=== PATIENT | male | born 1950 | race Caucasian/White ===

== ENCOUNTER → 2024-03-07 14:39 | Outpatient (REF) | payer MEDICARE, OTHER, SELFPAY ==
[2024-03-07 15:49] LABS: Urine Albumin 1+ (Neg - Trace); Urine Bilirubin Negative (Negative); Urine Character Slightly Cloudy (Clear); Urine Color Yellow; Urine Glucose Negative (Negative); Urine Ketone 1+ (Negative); Urine Leukocyte Trace (Negative); Urine Nitrite Positive (Negative); Urine Occult Blood 4+ (Negative); Urine Urobilinogen 1+ (Neg - 1+)
[2024-03-07 16:25] LABS: Urine Red Blood Cell >100 /HPF (0-2)
== END ==
LOC: REG 14:39
PROVIDERS: ATTENDING PHYSICIAN Surgery
DX: N39.0 Urinary tract infection, site not specified (principal); N20.0 Calculus of kidney
CPT/HCPCS: 74018; 81003; 81015; 87086

== ENCOUNTER → 2024-04-04 10:30 | Outpatient (REF) | payer MEDICARE, OTHER, SELFPAY | LOC: RAD 10:30 | PROVIDERS: ATTENDING PHYSICIAN Surgery Vascular Surgery; FAMILY PHYSICIAN Family Medicine | DX: I65.23 Occlusion and stenosis of bilateral carotid arteries (principal) | CPT/HCPCS: 93880 ==

== ENCOUNTER → 2024-04-11 06:23 | Outpatient (REF) | payer MEDICARE, OTHER, SELFPAY | LOC: RAD 06:23 | PROVIDERS: ATTENDING PHYSICIAN Surgery; FAMILY PHYSICIAN Family Medicine | DX: R31.9 Hematuria, unspecified (principal) | CPT/HCPCS: 74176 ==

== ENCOUNTER 2025-01-08 05:57 | Inpatient (IN) | payer MEDICARE, OTHER, SELFPAY ==
[2024-12-26 10:23] VITALS: BMI 38.1
[2024-12-26 11:16] LABS: % Basophils 0.6 % (0-2); % Eosinophils 1.7 % (0-6); % Immature Granulocytes 0.2 % (0-0.5); % Lymphocytes 30.4 % (20.5-51.1); % Monocytes 8.7 % (1.7-9.3); % Neutrophils 58.4 % (42.2-75.2); Absolute Eosinophils 0.1 10^3/uL (0-0.7); Absolute Lymphocytes 1.5 10^3/uL (1.2-3.4); Absolute Monocytes 0.4 10^3/uL (0.1-0.6); Absolute Neutrophils 2.8 10^3/uL (1.4-6.5); Hematocrit 43.1 % (39.0-52.0); Hemoglobin 14.6 g/dL (13.0-18.0); Mean Corp Hgb Conc. 33.9 g/dL (33.0-37.0); Mean Corpuscular Hgb 29.9 pg (27.0-31.0); Mean Corpuscular Volume 88.3 fL (80.0-94.0); Mean Platelet Volume 9.6 fL (7.4-10.4); Nucleated Red Blood Cells % 0 % (-); Platelet Count 167 10^3/uL (130-400); Red Blood Cell Count 4.88 10^6/uL (4.70-6.10); Red Cell Dist. Width 13.3 % (11.5-14.5); White Blood Cell Count 4.8 10^3/uL (4.8-10.8)
[2024-12-26 11:27] LABS: INR 1.18; PT 15.6 Sec (11.4-14.6)
[2024-12-26 12:23] LABS: ALT (SGPT) 19 U/L (0-50); AST (SGOT) 21 U/L (17-59); Albumin 4.2 g/dl (3.5-5.0); Alkaline Phosphatase 72 U/L (38-126); Blood Urea Nitrogen 24 mg/dl (9-20); Calcium 9.4 mg/dl (8.4-10.2); Carbon Dioxide 26 mmol/L (22-30); Chloride 109 mmol/L (98-107); Estimated Creatinine Clearance 72 ml/min; Glucose 104 mg/dl (70-99); Magnesium 2.1 mg/dl (1.6-2.3); Potassium 4.4 mmol/L (3.5-5.1); Sodium 143 mmol/L (135-145); Total Protein 6.5 g/dl (6.3-8.2); eGFR > 60.00
[2025-01-08] VITALS (21 sets, daily range): BP systolic 93–149; BP diastolic 64–104
[2025-01-08] MEDS: NSS 500 IV (06:56)
[2025-01-08 08:43] LABS: ACT-LR - POC 326 Seconds (116-155)
[2025-01-08 09:32] LABS: ACT-LR - POC 314 Seconds (116-155)
[2025-01-08] MEDS: TYLENOL 650 MG PO ×3 (10:59→21:28)
[2025-01-08] MEDS: FLOMAX 0.4 MG PO (10:59)
[2025-01-08] MEDS: LASIX 20 MG IV (11:00)
[2025-01-08] MEDS: PROSCAR 5 MG PO (11:04)
--- NOTE | 2025-01-08 11:33 | PTCARENOTE ---
Pt voided preop x1 and post op x3 same bloody urine. ( TURP needed/reason for Watchman procedure today). He follows w/urology. Finasteride/ Flomax and Lasix given post up as ordered. Dr Roberto aware preop.
--- NOTE | 2025-01-08 12:03 | ITS.CL.ABL ---
Chisel Trimmer - Ablation
Ablation
Procedure Report:
ELECTROPHYSIOLOGIC STUDY AND POSSIBLE ABLATION
DATE: 05/10/2025
Primary Care Provider: Dr. Shahid Green
Primary Sponsorship Coordinator: Dr. Rosmery Bell
INDICATION:
Symptomatic Atrial Fibrillation.
Paroxysmal
HISTORY: See H and P.
Symptomatic AF, poorly controlled with attempted medical therapy.
He is referred for electrophysiologic consultation from Dr. Rosmery Bell.
CHADSVASc = 5 (HTN, Age, CVA, Vasc Dz). He is maintained on apixaban 5 mg twice daily for atrial fibrillation related thromboembolic risk reduction.
He has a history of TIA, ischemic stroke, hypertension, former smoker, ophthalmologic migraines, dyslipidemia.
He had right carotid endarterectomy with patch angioplasty using bovine pericardium by Dr. Torres on March 19, 2022.
Echocardiogram August 14, 2020 finds normal LVEF at 65-70% normal RV size and function,� no significant valvular disease, normal right atrial and left atrial sizes.
HAS-BLED: 2
Age
H/O Stroke
CHADSVASc: 5
HTN
Age
h/o Stroke
Vascular Dz: PAD
PRESENTING RHYTHM: SR
HISTORY: See H and P.
Symptomatic AF, poorly controlled with attempted medical therapy.
ANTICOAGULATION: Apixaban 5 mg twice daily
'TIME-OUT': called and confirmed.
SEDATION/ANESTHESIA: provided via the anesthesia department using general anesthesia.
PROCEDURE:
Ultrasound Guidance with real-time visualization of needle insertion and vessel patency performed by ak for femoral venous Vascular Access.
Under real-time US guidance, the needle was advanced with negative pressure into the vein. The needle was seen entering the vessel lumen with a good return of dark red flow, the syringe was removed, non-pulsatile, dark red blood low was noted and
the wire was passed without difficulty, then the needle was removed. US confirmed the wire was in the vein, not going into an artery,
Images were taken and saved for the patient's permanent record. Imaging findings typical femoral venous anatomy. Direct visualization of needle puncture into the femoral vein was observed and recorded.
A decapolar CS catheter was placed within the CS for mapping and pacing.
The intracardiac ultrasound catheter was positioned in the RA for continuous intracardiac ultrasound imaging.
Heparin bolus and infusion to target ACT at 300 -350 seconds was administered. Transseptal puncture was performed. This entailed advancing a sheath with dilator into the superior vena cava and withdrawing both (monitoring intracardiac ultrasound,
fluoroscopy and tip pressure) with the tip oriented toward the atrial septum. The fossa ovalis was engaged (indicated by sudden displacement of the sheath tip as well as tenting of the fossa seen on intracardiac ultrasound).
The SustainU transseptal system was used. Left atrial catheter position was confirmed by echocardiographic imaging and fluoroscopy followed by RF delivery using the [place] system resulting in successful LA access with pressure monitoring
demonstrating LA pressure waveforms (LA mean pressure 14 mm Hg). The sheath was advanced over the dilator and positioned in the left atrium.
The Warren Grid multipolar mapping catheter was initially positioned through the transseptal sheath for high density mapping.
Geometry and voltage mapping was performed using the Warren multipolar grid catheter. Ensite-X was utilized for three-dimensional electroanatomical mapping.
A 3-D map was created using Ensite-X in Voxel mode. A 3-D reconstructed CT image was compared to the 3-D Navex map to assist in anatomic evaluation, mapping and ablation.
While mapping in the left atrium, a regular atrial tachycardia/atrial flutter occurred. Entrainment via the coronary sinus catheter finds that entrainment from the distal poles are outside the tachycardia circuit, entrainment from the proximal
poles are within the tachycardia circuit. ECG P wave morphology is consistent with counterclockwise right atrial flutter. The left atrial map was completed in flutter.
Next, the multipolar grid catheter was removed from the left atrium and position within the right atrium where activation mapping is consistent with typical counterclockwise right atrial flutter. Furthermore entrainment from the cavotricuspid
isthmus is within the tachycardia circuit diagnosing typical isthmus dependent right atrial flutter. During further mapping of the right atrium the tachycardia spontaneously converted back to sinus rhythm. Attention was then turned back to the
left atrium and PVI.
The IXcellerate catheter and system was used for cardiac ablation. Catheter positioning was guided and confirmed using both I.C.E. and fluoroscopy.
PV isolation approach was used to electrically isolate each PV ostia (LSPV, LIPV, RSPV, RIPV).
Additional energy applications/additional ablation set was required to accomplish wide area circumferential ablation around each of the pulmonary vein sets and additionally ablation to accomplish LA posterior wall ablation.
Remapping with the SEDLine multipolar grid catheter found that all PVPs were eliminated at each vein demonstrating entrance block. Also pacing from the multipolar mapping catheter around the the circumference of the ostia was performed at 10 ma and
2.0 msec output to assess for exit block. This demonstrated electrical isolation at each of the pulmonary vein ostia (LSPV, LIPV, RSPV, RIPV). There is lack of complete posterior wall isolation with voltage creep into the dome of the left atrium
posteriorly towards the left PV antrum. The ablation catheter was then substituted and additional ablation lesions were placed until full posterior wall electrical isolation was achieved. Programmed electrostimulation which included burst atrial
pacing as well as delivery of atrial decremental extrastimuli down to atrial ERP failed to induce any sustained arrhythmias.
Subsequently, after successful placement of the watchman left atrial appendage occlusion device and removal of catheters from the left atrium, attention was turned towards right atrial flutter.
IV pressors were administered to obtain systolic blood pressure greater than 150. Then 200 mcg of nitroglycerin was administered as the femoral pulse catheter in the flower configuration was positioned at the cavotricuspid isthmus, first towards
the IVC and then moved progressively towards the tricuspid annulus. During catheter manipulation atrial fibrillation occurred. Energy delivery was performed with a series of pulses at the CTI starting at the IVC and working towards the tricuspid
annulus. At no point was there any ST segment elevation. Blood pressure remained stable. At the end of energy delivery the rhythm had regularized and burst atrial pacing from the coronary sinus catheter terminated the tachycardia which appeared
to be a left atrial, possibly mitral annular arrhythmia. The multipolar grid mapping catheter was then exchanged and positioned within the right atrium. Mapping while pacing from the proximal coronary sinus demonstrated a line of electrical block
at the CTI at approximately 6:00 in a 30 degree PILO position. No further arrhythmias were observed.
I.C.E. :
Pre-Ablation Post-Ablation
LVEF: 55 % 55 %
WMA: none none
Pericardial effusion: trace trace
COMPLICATIONS:
None
SUMMARY:
- Mapping and ablation to isolate the PVs
- Additional AF ablation set after PVI (left atrial posterior wall ablation achieving electrical isolation at the posterior wall).
- Mapping and ablation of second tachycardia (mapping and ablation of right atrial SVT, typical counterclockwise right atrial flutter).
- 3-D Electroanatomical Mapping
- Intracardiac Ultrasound
- Ultrasound guidance for vascular access
Post ablation, I discussed today's findings and results with the patient's family.
RECOMMENDATIONS:
- Observe in monitored bed.
- Maintain oral anticoagulation.
- Continue cardiovascular care with with Dr. Rosmery Bell
Watchman report is provided separately
Copy to:
Dr. Shahid Green
Dr. Rosmery Bell
--- NOTE | 2025-01-08 12:20 | WATCHMAN.MD ---
Watchman Implant
-
WATCHMAN LEFT ATRIAL APPENDAGE CLOSURE DEVICE REPORT
Date: January 08, 2025
Referring Puller Out: Dr. Shahid Green
Primary Care Provider: Dr. Rosmery Bell
History: Atrial fibrillation with high thromboembolic risk, [id number] score of 5 and also high bleeding risk with serious balance disorder and risks of traumatic falls. He has been referred for left atrial appendage occlusion to reduce his
long-term exposure to oral anticoagulation. Earlier today he underwent PVI and right atrial flutter ablation.
Watchman Team:
MARIE: Dr Cameron Adair M.D.
Implanter and Transseptal molasses coloring operator: Dr Jacques Roberto M.D.
Procedure: Watchman left atrial appendage closure.
The patient was placed under general anesthesia by anesthesia.
A MARIE probe was placed.
Ultrasound Guidance with real-time visualization of needle insertion and vessel patency performed by me for femoral venous Vascular Access.
Under real-time US guidance, the needle was advanced with negative pressure into the vein. The needle was seen entering the vessel lumen with a good return of dark red flow, the syringe was removed, non-pulsatile, dark red blood low was noted and
the wire was passed without difficulty, then the needle was removed. US confirmed the wire was in the vein, not going into an artery,
Images were taken and saved for the patient's permanent record. Imaging findings typical femoral venous anatomy. Direct visualization of needle puncture into the femoral vein was observed and recorded.
MARISOL type: Chicken wing
Heparin was administered to goal ACT 350-400 seconds. Fluid bolus was given.
Transseptal puncture was previously obtained by me earlier today during the time of PVI providing left atrial access for the watchman delivery system.
The 14 Cuban watchman access system with deflectable sheath was positioned within the left atrium. A 5 Cuban curved pigtail was then substituted for the guidewire through the watchman sheath to the ostium of the left atrial appendage. The 5
Cuban pigtail was advanced into the left atrial appendage and angiography was performed. This allowed additional measurements assessing left atrial appendage ostium size and MARISOL morphology.
The pigtail catheter was removed from the access sheath. A 27 mm Watchman device was flushed and then placed into the watchman access sheath and advanced through the sheath. The Watchman was clamped into the sheath. The device was deployed into
the left atrial appendage. While the device appeared well-seated with good compression ratios and no obvious leaks, the tug test resulted in proximal movement of the device such that a significant mitral shoulder developed. It was felt that a
larger size Watchman device would be better suited for this left atrial appendage anatomy. The 27 mm Watchman device was recaptured and removed and a 31 mm device was substituted. The device was delivered into the left atrial appendage and full
PASS criteria were met. The stability tug test was performed and passed. Compression ranges from 15% to 23 %.
After meeting the PASS release criteria the device was released into the left atrial appendage.
The watchman access sheath was then removed through the transseptal into the IVC. A figure 8 suture closure was performed at the site of the femoral venous puncture and the sheath as it was removed.
Impression:
- Successful Deployment 31 mm WATCHMAN left atrial appendage closure device.
- Ultrasound guidance for vascular access
Recommended anticoagulation strategy for this specific patient is:
-- Maintain Eliquis 5 mg twice daily
-- Transesophageal echocardiogram in approximately 3 months (this is scheduled for April 09, 2025)
-- If no significant leak and no device related thrombus, stop Eliquis and initiate aspirin 81 mg daily
(At post procedure MARIE, leaks > 5mm are significant and require chronic full anticoagulation or consideration for leak closure. Lizy-device leaks between 3 and 5 mm may also carry an increased risk. These patients will need individualized risk
assessment and discussion with Watchman team. Leaks < 3 mm are generally considered non-significant. With leak of any size suggestion is to check repeat MARIE 12 mo out from implant.)
Continue cardiovascular care with Dr. Rosmery Bell
cc:
Dr. Shahid Green
Dr. Rosmery Bell
--- NOTE | 2025-01-08 12:20 | PTCARENOTE ---
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 Pt has no complaints at this time. R groin is c/d/i. No bleeding/hematoma noted. Activity restrictions reviewed w/ pt and verbalizes understanding. Tele- SR. Oriented pt to room. Currently in bed; call genaro w/in reach.
--- NOTE | 2025-01-08 14:45 | CM ---
Reviewed chart. Met with Mr. Mcgraw to review discharge plans. He states prior to admission he resides with his daughter and son-in-law in a two story home with two steps to enter. He states he has a full flight of steps to get to his
bedrroom/full bathroom. He states he has a powder room on the first floor. He states prior to admission he was independent with ambulation and adls. He states he uses a single point cane if he needs to get up a high curb. He states he has a
single point cane at home. He states he has a prescription plan and uses [facility] pharmacy. Medical work-up in progress. The discharge plan is to retur home with his daughter and son-in-law when medically stable.
[2025-01-08] MEDS: NORVASC 5 MG PO (16:59)
[2025-01-08] MEDS: ZETIA 10 MG PO (16:59)
--- NOTE | 2025-01-08 20:00 | PTCARENOTE ---
Assumed care of pt from prev nsg shift; Pt AAOx3 w/c/o of 2/10 L middle chest pain. Pt reports it as intermittent & as a 'dull ache'. PRN PO Tylenol administered as ordered & this RN discussed w/pt that post cardiac ablation it is not uncommon to
have intermittent or twinges of chest discomfort. Pt advised to let nurse know if pain gets worse or is continuous. Pt's VSS w/HR in the 90's-100's & BP 123/86. Pt is ST on telemetry monitoring & MD is aware of pt's tachycardia. Pt's R groin access
site w/dressing C/D/I & no signs or symptoms of bleeding or hematoma. Pt assisted to & from the BR; pt's gait steady w/RW. Pt w/callbell within reach. Plan of care ongoing.
[2025-01-08] MEDS: ZESTRIL 10 MG PO (21:27)
[2025-01-08] MEDS: ELIQUIS 5 MG PO (21:27)
[2025-01-08] MEDS: VIMPAT 100 MG PO (21:28)
[2025-01-09 03:24] VITALS: BP 138/89
[2025-01-09] MEDS: TYLENOL 650 MG PO (03:28)
[2025-01-09 04:34] LABS: Hematocrit 34.3 % (39.0-52.0); Hemoglobin 11.7 g/dL (13.0-18.0); Mean Corp Hgb Conc. 34.1 g/dL (33.0-37.0); Mean Corpuscular Hgb 30.2 pg (27.0-31.0); Mean Corpuscular Volume 88.4 fL (80.0-94.0); Mean Platelet Volume 10.1 fL (7.4-10.4); Platelet Count 136 10^3/uL (130-400); Red Blood Cell Count 3.88 10^6/uL (4.70-6.10); Red Cell Dist. Width 14.1 % (11.5-14.5); White Blood Cell Count 8.4 10^3/uL (4.8-10.8)
[2025-01-09 04:37] LABS: Blood Urea Nitrogen 20 mg/dl (9-20); Calcium 8.5 mg/dl (8.4-10.2); Carbon Dioxide 25 mmol/L (22-30); Chloride 110 mmol/L (98-107); Estimated Creatinine Clearance 88 ml/min; Glucose 119 mg/dl (70-99); Magnesium 1.8 mg/dl (1.6-2.3); Potassium 3.9 mmol/L (3.5-5.1); Sodium 141 mmol/L (135-145); eGFR > 60.00
[2025-01-09 04:49] VITALS: BMI 37.5
[2025-01-09 07:22] VITALS: BP 113/70
[2025-01-09 07:46] LABS: ACT-LR - POC > 397 Seconds (116-155)
[2025-01-09] MEDS: VIMPAT 100 MG PO (08:17)
[2025-01-09] MEDS: TOPROL XL 25 MG PO (08:17)
[2025-01-09] MEDS: ELIQUIS 5 MG PO (08:17)
[2025-01-09] MEDS: ZESTRIL 10 MG PO (08:17)
[2025-01-09] MEDS: FLOMAX 0.4 MG PO (08:17)
[2025-01-09] MEDS: PROSCAR 5 MG PO (08:17)
[2025-01-09] MEDS: NORVASC 5 MG PO (08:23)
--- NOTE | 2025-01-09 09:23 | CM ---
Reviewed chart. Met with Mr. Mcgraw to review discharge plans. He states he feels well and maybe able to go home soon. Prior to admission he resides with his daughter and son-in-law in a two story home with two steps. He has a full flight of
steps to get to bedroom/full bathroom. He has a powder room on the first floor. Prior to admission he was independent with ambulation and adls. He has a single point cane that he carries if needed. He has a prescription plan and uses [facility]. Medical work in progress. The discharge plan is to return home with his daughter and son-in-law when medically stable.
--- NOTE | 2025-01-09 09:26 | W.PN.CARDCBS ---
Addendum entered and electronically signed by Jacques Roberto MD 01/09/25 12:47:
Patient seen, interviewed and examined by me.
Well-appearing, no acute distress
Regular rate and rhythm with normal S1 and S2, no S3 no S4. There is a grade 1/6 apical holosystolic murmur and no rubs. PMI is normally placed.
Lungs are clear to auscultation bilaterally without wheezes rales or rhonchi.
Abdomen soft nontender nondistended with normoactive bowel sounds
Extremities show trace pretibial edema bilaterally no clubbing or cyanosis.
Neurologic exam is grossly nonfocal.
He underwent both PVI/left atrial ablation as well as typical right atrial flutter ablation followed by concomitant left atrial appendage occlusion with watchman implantation on January 08, 2025.
Hemodynamically stable overnight.
I reviewed telemetry which finds mostly sinus rhythm, several short burst of asymptomatic paroxysmal atrial tachycardia.
I reviewed yesterday's findings and today's telemetry results with him in detail.
I also reviewed plan for transesophageal echo in 3 months and if the device is well-seated with no device related thrombus anticoagulation can be stopped in favor of aspirin 81 mg daily.
Furthermore activity restrictions reviewed.
All of his questions have been answered.
Stable for discharge to home today.
.
Original Note:
Today's Communication / Plan
-
post ablation and Watchman device implant
stable for d/c home
Impression / Plan
-
Referring Satellite Technician: Dr. Shahid Green
Primary Care Provider: Dr. Rosmery Bell
74 yo WM h/o Atrial fibrillation with high thromboembolic risk, [id number] score of 5 and also high bleeding risk with serious balance disorder and risks of traumatic falls. He has been referred for left atrial appendage occlusion to reduce his
long-term exposure to oral anticoagulation. Earlier today he underwent PVI and right atrial flutter ablation.
Impression:
Symptomatic paryxosmal Afib
post PVI and RA flutter ablation 01/08/25
post 31mm Watchman device implant 01/08/25
BPH with Hematuria
CVA 2021
HTN
HLD
GERD
REJI psot R CEA
LDD
Osteoarthritis
former tobacco abuse
obesity
Plan:
post ablation and watchman
groin stable
tele SR with some ST this am
Hbg dropped 14-11.7, most likely dilutional with close to 2L fluid intraprocedurally
OAC Eliquis
continue metoprolol
f/u MRAIE in 3 mo
Recommended anticoagulation strategy for this specific patient is:
-- Maintain Eliquis 5 mg twice daily
-- Transesophageal echocardiogram in approximately 3 months (this is scheduled for April 09, 2025)
-- If no significant leak and no device related thrombus, stop Eliquis and initiate aspirin 81 mg daily
home today
Progress Note - Satellite Technician
Subjective
Date of Service: January 09, 2025
denies cp, sob, mild palpitations this am with ST
Objective
Labs:
01/09/25 03:36
01/09/25 03:36
Labs
Hgb 11.7 g/dL (13.0-18.0) L 01/09/25 03:36
Hct 34.3 % (39.0-52.0) L 01/09/25 03:36
Plt Count 136 10^3/uL (130-400) 01/09/25 03:36
PT 15.6 Sec (11.4-14.6) H 12/26/24 10:34
INR 1.18 12/26/24 10:34
Sodium 141 mmol/L (135-145) 01/09/25 03:36
Potassium 3.9 mmol/L (3.5-5.1) 01/09/25 03:36
BUN 20 mg/dl (9-20) 01/09/25 03:36
Creatinine 0.9 mg/dL (0.7-1.3) 01/09/25 03:36
Glucose 119 mg/dl (70-99) H 01/09/25 03:36
Vital Signs and I&O:
Vital Signs
Temp Pulse Resp BP Pulse Ox
98 F 96 20 113/70 96
01/09/25 07:22 01/09/25 08:17 01/09/25 07:22 01/09/25 08:17 01/09/25 07:22
Vital Signs
Temp Pulse Resp BP Pulse Ox
98 F 96 20 113/70 96
01/09/25 07:22 01/09/25 08:17 01/09/25 07:22 01/09/25 08:17 01/09/25 07:22
Intake & Output
01/07/25 01/08/25 01/09/25 01/10/25
06:59 06:59 06:59 06:59
Intake Total 40 / 40 1740 / 1740
Output Total 650 / 650
Balance 40 / 40 1090 / 1090
Physical Exam
Physical Exam
NAD, AOx3
S1, S2, RRR
CTAB, non labored, no wheeze
SNTND bsx4
R fem site soft with scant amount of marked drainage
--- NOTE | 2025-01-09 11:08 | PTCARENOTE ---
Pt is AOx3, no complaints of pain or discomfort. Independent OOB with walker. SR on tele monitor, VSS. Plan for discharge later today. Call lam within reach.
[2025-01-09 11:51] VITALS: BP 98/70
--- NOTE | 2025-01-09 12:10 | W.DS.TRANS ---
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
-
Discharge Instructions:
Discharge Diagnosis/Procedures AFib/AFlutter, s/p Ablation + Watchman device
implant
Diet Low Cholesterol
Driving Restrictions No driving for 24 hours
Others Tests Follow up MARIE has been scheduled for you at
[facility] on 04/09/2025. You will
receive a call the day prior with arrival time.
Pre-admission testing is scheduled for 04/01/2025
at 10am [facility]. You will receive instructions in the
mail.
Instructions:
Stand-Alone Forms: DC Instructions- Cath/EP Lab
Changes to Home Medications: No
Discharge Medications:
DC Medications w/original date entered in English [employer]
vitamin B complex 1 tab PO DAILY Supplement 11/19/18
ezetimibe 10 mg tablet 10 mg PO QPM High cholesterol 03/16/22
lisinopril 10 mg tablet 10 mg PO BID Blood pressure 03/16/22
ascorbic acid (vitamin C) 500 mg tablet (Vitamin C) 1,000 mg PO DAILY Supplement 03/18/22
cholecalciferol (vitamin D3) 25 mcg (1,000 unit) tablet 2,000 units PO DAILY Supplement 03/18/22
tamsulosin 0.4 mg capsule 0.4 mg PO DAILY Urinary issue 03/18/22
alirocumab 75 mg/mL subcutaneous pen injector (Praluent Pen) 75 mg SC Q2W 12/24/24
amlodipine 5 mg tablet 5 mg PO QPM 12/24/24
apixaban 5 mg tablet (Eliquis) 5 mg PO BID 12/24/24
finasteride 5 mg tablet 5 mg PO DAILY 12/24/24
lacosamide 100 mg tablet 100 mg PO BID 12/24/24
metoprolol succinate 25 mg tablet,extended release 24 hr 25 mg PO DAILY 12/24/24
Home Medication Changes
Pending Results: No
== END 2025-01-09 13:44 | disposition home or self-care (01) | DRG 317 ==
LOC: IVU 05:57
PROVIDERS: Internal Medicine Cardiovascular Disease; Nurse Practitioner; ADMITTING PHYSICIAN Internal Medicine Cardiovascular Disease; FAMILY PHYSICIAN Family Medicine; OTHER PHYSICIAN Internal Medicine Cardiovascular Disease
PROC: 02L73DK Occlusion of Left Atrial Appendage with Intraluminal Device, Percutaneous Approach (ICD-10-PCS; 2025-01-08)
PROC: 4A023FZ Measurement of Cardiac Rhythm, Percutaneous Approach (ICD-10-PCS; 2025-01-08)
PROC: 02K83ZZ Map Conduction Mechanism, Percutaneous Approach (ICD-10-PCS; 2025-01-08)
PROC: 4A0234Z Measurement of Cardiac Electrical Activity, Percutaneous Approach (ICD-10-PCS; 2025-01-08)
PROC: B24BZZ4 Ultrasonography of Heart with Aorta, Transesophageal (ICD-10-PCS; 2025-01-08)
PROC: 02583ZF Destruction of Conduction Mechanism using Irreversible Electroporation, Percutaneous Approach (ICD-10-PCS; 2025-01-08)
DX: I48.0 Paroxysmal atrial fibrillation (principal); Z00.6 Encounter for examination for normal comparison and control in clinical research program; N40.1 Benign prostatic hyperplasia with lower urinary tract symptoms; R31.9 Hematuria, unspecified; E78.00 Pure hypercholesterolemia, unspecified; I10 Essential (primary) hypertension; I65.23 Occlusion and stenosis of bilateral carotid arteries; I47.19 Other supraventricular tachycardia; I48.3 Typical atrial flutter; K21.9 Gastro-esophageal reflux disease without esophagitis; I69.398 Other sequelae of cerebral infarction; R26.89 Other abnormalities of gait and mobility; R42 Dizziness and giddiness; E66.9 Obesity, unspecified; N52.9 Male erectile dysfunction, unspecified; M51.369 Other intervertebral disc degeneration, lumbar region without mention of lumbar back pain or lower extremity pain; M19.90 Unspecified osteoarthritis, unspecified site; I73.9 Peripheral vascular disease, unspecified; Z68.38 Body mass index [BMI] 38.0-38.9, adult; Z79.01 Long term (current) use of anticoagulants; Z79.899 Other long term (current) drug therapy; Z87.891 Personal history of nicotine dependence
CPT/HCPCS: 33340; 36415; 80048; 80053; 83735; 85025; 85027; 85347; 85610; 86850; 86900; 86901; 87070; 93005; 93355; 93655; 93656; 93657; C1730; C1732; C1733; C1759; C1766; C1769; C1892; C1894; Q9967

== ENCOUNTER 2025-02-01 14:58 | Emergency (ER) | payer MEDICARE, OTHER, SELFPAY ==
[2025-02-01 15:10] VITALS: BP 124/81
[2025-02-01 15:29] LABS: % Basophils 0.4 % (0-2); % Eosinophils 0.9 % (0-6); % Immature Granulocytes 0.2 % (0-0.5); % Monocytes 9.7 % (1.7-9.3); % Neutrophils 61.8 % (42.2-75.2); Absolute Lymphocytes 1.2 10^3/uL (1.2-3.4); Absolute Monocytes 0.4 10^3/uL (0.1-0.6); Absolute Neutrophils 2.8 10^3/uL (1.4-6.5); Hematocrit 33.2 % (39.0-52.0); Hemoglobin 11.3 g/dL (13.0-18.0); Mean Corpuscular Hgb 29.9 pg (27.0-31.0); Mean Corpuscular Volume 87.8 fL (80.0-94.0); Mean Platelet Volume 9.5 fL (7.4-10.4); Nucleated Red Blood Cells % 0 % (-); Platelet Count 191 10^3/uL (130-400); Red Blood Cell Count 3.78 10^6/uL (4.70-6.10); Red Cell Dist. Width 13.5 % (11.5-14.5); White Blood Cell Count 4.6 10^3/uL (4.8-10.8)
[2025-02-01 15:54] LABS: Troponin I < 0.012 ng/ml
[2025-02-01 16:08] LABS: ALT (SGPT) 19 U/L (0-50); AST (SGOT) 22 U/L (17-59); Albumin 4.1 g/dl (3.5-5.0); Alkaline Phosphatase 70 U/L (38-126); Blood Urea Nitrogen 26 mg/dl (9-20); Calcium 8.9 mg/dl (8.4-10.2); Carbon Dioxide 21 mmol/L (22-30); Chloride 109 mmol/L (98-107); Glucose 110 mg/dl (70-99); Sodium 141 mmol/L (135-145); Total Bilirubin 0.8 mg/dl (0.2-1.3); Total Protein 6.2 g/dl (6.3-8.2); eGFR > 60.00
--- NOTE | 2025-02-01 18:49 | ED.GENMED ---
History of Present Illness
General
Chief Complaint: Chest Pain
Source: patient
Exam Limitations: none
Time Seen by Provider: 02/01/25 18:31
History of Present Illness
History of Present Illness:
See MDM
Past History
Past History
ED Past Medical History: HTN, Hypercholesterolemia, Other (nephrolithiasis, diverticulosis, obesity, erectile dysfunction), Other (left knee DJD) and Other (Episode of speech arrest in 2004)
ED Past Surgical History: Appendectomy, Orthopedic (lumbar laminectomy), Tonsilectomy and Other (L foot fx w/ pinning)
Social History
Tobacco: Non-smoker
Personal:
Living: with family
Employment: Employed
Family History
Family History: Other (reviewed and noncontributory)
Phy Exam
Physical Exam
Physical Exam:
See MDM
Scores
Heart Score for Chest Pain Patients
STEMI patient?: No
History: Slightly or Non-Suspicious
ECG: Normal
Age: >/= 65 years
Risk Factors: 1 or 2 Risk Factors
Troponin: </= Normal Limit
Heart Score for Chest Pain Patients: 3
Heart Score Risk: 2.5% MACE over next 6 weeks
Course
Orders/Labs/Results
Orders:
Orders
02/01/25 14:59
Electrocardiogram (*1) Urgent
Reason for Study: Chest Pain
EKG- Treatment ONCE
02/01/25 15:16
Electrocardiogram (*1) Urgent
Reason for Study: Chest Pain
Cardiac Monitoring- Treatment ONCE
O2 Therapy [RESP] Urgent
Titrate/Wean O2 to maintain O2 sat greater than (%): 90
Special Instructions: Maintain sats >/=90%
Pulse Ox/spot Check [RESP] Urgent
Quantity: 1
Special Instructions: ON ROOM AIR
02/01/25 15:24
Complete Blood Count/With Diff Urgent
Comprehensive Metabolic Panel Urgent
Troponin I Urgent
02/01/25 18:48
CR Chest - 2 Views Urgent
Comment:
Reason For Exam: intermittent chest pain
Abnormal Lab Results
02/01/25
15:24
WBC 4.6 L 10^3/uL
(4.8-10.8)
RBC 3.78 L 10^6/uL
(4.70-6.10)
Hgb 11.3 L g/dL
(13.0-18.0)
Hct 33.2 L %
(39.0-52.0)
Monocytes % 9.7 H %
(1.7-9.3)
Chloride 109 H mmol/L
(98-107)
Carbon Dioxide 21 L mmol/L
(22-30)
BUN 26 H mg/dl
(9-20)
Glucose 110 H mg/dl
(70-99)
Total Protein 6.2 L g/dl
(6.3-8.2)
02/01/25 15:24
02/01/25 15:24
Vital Signs
Initial and Last Documented VS:
Initial Vital Signs
Temp Pulse Resp BP Pulse Ox
98.6 F 78 18 124/81 94
02/01/25 15:10 02/01/25 15:10 02/01/25 15:10 02/01/25 15:10 02/01/25 15:10
Last Documented Vital Signs
Temp Pulse Resp BP Pulse Ox
98.6 F 66 17 112/73 95
02/01/25 15:10 02/01/25 19:30 02/01/25 19:30 02/01/25 19:00 02/01/25 19:30
MDM/Problems Addressed
Differential Diagnosis Includes:
HPI and MDM Narrative:
74-year-old male presenting for evaluation of intermittent chest discomfort. This has been ongoing for the past few days. He does acknowledge that it is not necessarily worse with exertion. He denies any pain but states there is a mild
discomfort. Given his recent history, he was sent in for evaluation. Patient had recent ablation and Watchman procedure. He then had dental extraction. He was pretreated with antibiotics prior to this. He denies any cough or fevers. He then
wonders if he has anemia. He has intermittent hematuria for which she is followed by urology. The planning on performing a TURP.
On exam, is well-appearing nontoxic. Blood work was done prior to my assessment. Patient has baseline mild anemia. His troponin is negative. His EKG is sinus and not exertional. Given his recent procedures, will obtain chest x-ray
Physical exam
General: Well appearing and non-toxic
HEENT: protecting airway. No dental infection noted
Neck: appears supple
CV: No evidence of cyanosis. Regular rate and rhythm. No murmur
Resp: No accessory muscle use. Lungs clear
Abd: Non-distended
Extremities: No deformities
Neuro: alert
Psych: Normal affect
Skin: Intact
Problems Addressed including Acute and Chronic Conditions affecting care:
1. Intermittent chest comfort
Acuity: acute
Prognosis: stable
Details: Given that symptoms are nonexertional, doubt ACS. Troponin negative. EKG nonischemic. Will obtain chest x-ray
Updates
Chest x-ray clear. Patient feeling better and feels comfortable going home
Differential Diagnosis (but not limited to): Noncardiac chest pain, pleural effusion, pneumonia
Testing considered: 2 troponin rule out but doubt ACS given normal troponin with several days
Drug therapy (if applicable): OTC meds, please see d/c instruction regarding Rx drugs
Amount and/or Complexity of Data Reviewed
Clinical info obtained from: Patient
External data reviewed: N/A
Labs I independently reviewed (but not limited to): Troponin normal
Radiology: X-ray independently reviewed: Chest x-ray clear
Pulse Ox: not hypoxic
EKG independently reviewed: Sinus rhythm, normal axis, no STEMI
Tobacco Sizer: N/A
Critical Care: N/A
Risk of Complication:
Social Determinants of health: Good social support
Discussed with other providers: N/A
Escalation of Care includes Admit/Obs: After being observed in the Emergency Department, pt stable for discharge.
Occasional wrong word or 'sound a like' substitutions may have occurred due to the inherent limitations of voice recognition software. Read the chart carefully and recognize, using context, where substitutions have occurred.
*Critical Care Note
Total Time (30-74mins, 75-104mins- exclusive of procedures): Not Applicable
ED Attending Note
-
Portions of this chart may have been created with voice recognition software.� Occasional wrong word or��sound alike� substitutions may have occurred due to the inherent limitations of voice recognition software.
Discharge Plan
Departure
Patient Disposition: Home (Routine Discharge)
Date of Disposition: 02/01/25
Time of Disposition: 20:02
Patient with high blood pressure during this ER visit?: No
Discharge Problem:
Chest discomfort
Prescriptions:
No Action
vitamin B complex 1 TAB tablet
1 tab PO DAILY
lisinopril 10 MG tablet
10 mg PO BID
ezetimibe 10 MG tablet
10 mg PO QPM
ascorbic acid (vitamin C) [Vitamin C] 500 MG tablet
1,000 mg PO DAILY
tamsulosin 0.4 MG capsule
0.4 mg PO DAILY
cholecalciferol (vitamin D3) 1,000 UNITS tablet
2,000 units PO DAILY
amlodipine 5 mg Tablet
5 mg PO QPM
metoprolol succinate 25 mg Tablet Extended Release 24 Hr
25 mg PO DAILY
Eliquis 5 mg Tablet
5 mg PO BID
Praluent Pen 75 mg/mL Pen Injector
75 mg SC Q2W
finasteride 5 mg Tablet
5 mg PO DAILY
lacosamide 100 mg Tablet
100 mg PO BID
Referrals:
Shahid Green DO [Family Provider] -
Activity Restrictions/Additional Instructions:
Please return for any worsening symptoms.
You may return at any time if you have further concerns.
Please follow up with your doctor at the first available appointment, preferably this week.
Please follow-up with your paper sales manager as well.
Thank you for choosing [facility].
Interventions
Interventions:
*Risk Screen - Suicide Last Done: 02/01/25 15:10
*General Assessment Last Done: 02/01/25 15:10
*ED- Fall Risk Assessment Last Done: 02/01/25 15:10
ED- Cardiac Assessment Last Done: 02/01/25 19:14
Discharge Date and Time
Print Language: ARABIC
[2025-02-01 18:50] VITALS: BP 129/79
[2025-02-01 19:00] VITALS: BP 112/73
[2025-02-01 19:11] VITALS: BMI 36.5
[2025-02-01 20:00] VITALS: BP 127/81
== END 2025-02-01 20:09 | disposition home or self-care (01) ==
LOC: EMR 14:58
PROVIDERS: EMERGENCY PHYSICIAN Student in an Organized Health Care Education/Training Program; FAMILY PHYSICIAN Family Medicine
DX: R07.89 Other chest pain (principal); I10 Essential (primary) hypertension; E78.00 Pure hypercholesterolemia, unspecified; D64.9 Anemia, unspecified
CPT/HCPCS: 99285; 71046; 80053; 84484; 85025; 93005

== ENCOUNTER → 2025-04-02 08:19 | Outpatient (REF) | payer MEDICARE, OTHER, SELFPAY | LOC: RAD 08:19 | PROVIDERS: ATTENDING PHYSICIAN Surgery Vascular Surgery; FAMILY PHYSICIAN Family Medicine | DX: I65.29 Occlusion and stenosis of unspecified carotid artery (principal); I65.23 Occlusion and stenosis of bilateral carotid arteries | CPT/HCPCS: 93880 ==

== ENCOUNTER 2025-04-09 07:35 | Day surgery (SDC) | payer MEDICARE, OTHER, SELFPAY ==
--- NOTE | 2025-04-01 09:47 | HPS.HSE ---
Family Physician
-
Family Physician: NO INTERVIEW UNKNOWN
Chief Complaint
-
Paroxysmal atrial fibrillation.
History of Present Illness
The patient is a 74-year-old male presenting today for paroxysmal atrial fibrillation. The patient reports a history of rapid heart rates and palpitations secondary to this diagnosis. He is on current pharmacological therapy with
Metoprolol Succinate. He has been compliant with Eliquis for oral anticoagulation due to a [id number] score of 5. He previously experienced an ischemic stroke in 2021 for which he does have residual balance difficulties and chronic dizziness. He
also has a history of recurrent hematuria secondary to his BPH for which he is awaiting a TURP. His overall HAS-BLED score is 3. He proceeded with pulmonary vein isolation and Watchman implantation in mid December 2024 in the hopes of controlling his
atrial fibrillation better and possibly discontinuing his oral anticoagulation in the near future. He is now 3 months post-Watchman and he will need a transesophageal echocardiogram to assess the stability of his Watchman implant. He denies any
current complaints today such as chest pain, shortness of breath, nausea, vomiting, diarrhea, lightheadedness, cough, sore throat, or fever. He does report dizziness today at his baseline. His Lacosamide is reportedly being tapered off by his
neurologist to help with his dizziness.
Medical History
Past Medical History
Past Medical History: Reports Other
Additional Past Medical History:
1. Paroxysmal atrial fibrillation, pharmacological therapy with Metoprolol Succinate, oral anticoagulation with Eliquis.
2. Hypertension.
3. Hypercholesterolemia.
4. Bilateral carotid artery stenosis, status post right carotid endarterectomy 2021; <50% left internal carotid artery stenosis.
5. Questionable POTS.
6. Venous varicosities.
7. Renal insufficiency per records.
8. GERD.
9. Colon polyps.
10. Diverticulosis.
11. Nephrolithiasis.
12. Hemorrhoids.
13. Ischemic CVA, 2022, with residual balance difficulties and chronic dizziness.
14. Multiple TIAs.
15. Ophthalmic migraines.
16. Lumbar degenerative disc disease.
17. Osteoarthritis.
18. BPH with history of recurrent hematuria, awaiting TURP.
19. Erectile dysfunction.
21. Obesity, BMI 38.3.
22. History of tobacco abuse.
Past Surgical History: Reports Other
Additional Past Surgical History:
1. Pulmonary vein isolation and Watchman implant.
2. Right carotid endarterectomy.
3. Lumbar discectomy.
4. Multiple kidney stone extractions.
5. Lithotripsy and renal stenting.
6. Pinning of left 5th metatarsal.
7. Benign cyst excision of left hand.
8. Appendectomy.
9. Tonsillectomy.
10. Dental extractions.
11. Multiple colonoscopies.
Social History
Tobacco: Former Smoker (He is a former 1 pack per month cigarette smoker who quit tobacco products altogether approximately 6 years ago.)
Alcohol: None (reportedly in the last 2 years )
Living: Other (The patient lives in a two-story home with his daughter and son-in-law.)
Family History
Family History: Not pertinent
Allergies / Home Medications
Allergy/Medication List:
Home medications:
1. Praluent 75 mg subcutaneous every 2 weeks.
2. Amlodipine 5 mg p.o. daily.
3. Eliquis 5 mg p.o. twice a day.
4. Ascorbic acid 1000 mg p.o. daily.
5. Cholecalciferol 2000 units p.o. daily.
6. Zetia 10 mg p.o. every evening.
7. Finasteride 5 mg p.o. daily.
8. Lacosamide 50 mg p.o. twice a day.
9. Lisinopril 10 mg p.o. twice a day.
10. Metoprolol Succinate 25 mg p.o. daily.
11. Tamsulosin 0.4 mg p.o. daily.
12. Vitamin B complex 1 tablet p.o. daily.
Allergies: Amoxicillin. Statins.
Review of Systems
-
A 12 point ROS was completed and negative except as noted: Yes
Physical Exam
Vital Signs
Blood pressure 125/72. Heart rate 75. Respirations 18. Pulse ox 95% on room air.
Height 5 feet, 7 inches. Weight 111 kg. BMI 38.3.
Physical Exam
General: Well Developed, Well Nourished and No Apparent Distress
HEENT: NormoCephalic, Moist mucous membranes, Atraumatic and PERRLA
Respiratory: Clear
Cardiac: Regular Rhythm
GI: Soft, Non Tender, Non Distended and Other (Obese. )
Musculoskeletal: No Edema and Other (The patient ambulates with a cane. )
Skin: Warm and Dry
Neuro: AO x 3 and Nonfocal/grossly intact
Laboratory Results
-
EKG 04/01/2025: Normal sinus rhythm.
Transesophageal echocardiogram 01/08/2025: Normal LV size and function with no regional wall motion abnormalities. Ejection fraction is 55-60% by visual estimation. Normal RV size and function. Left atrial appendage is free of obvious thrombus.
Status post Watchman FLX 31 mm with all Pass criteria met. No significant valvular disease. Compared to prior from August 14, 2020, now status post Watchman FLX 31 mm device.
Impression/Plan
-
IMPRESSION/PLAN:
1. Paroxysmal atrial fibrillation: The patient is 3 months post-Watchman implant and will need to undergo a transesophageal echocardiogram on 04/09/[address] Fabian Yu. The benefits and risks of the procedure have been explained to the
patient. The patient understands these risks and wishes to proceed. Should his device be well seated and without significant leaks, he will likely transition off Eliquis and onto a daily baby Aspirin daily.
[2025-04-01 10:01] VITALS: BMI 38.4
== END 2025-04-09 11:08 | disposition home or self-care (01) ==
LOC: CATH 07:35
PROVIDERS: ATTENDING PHYSICIAN Internal Medicine Cardiovascular Disease; FAMILY PHYSICIAN Family Medicine
DX: I08.1 Rheumatic disorders of both mitral and tricuspid valves (principal); I48.0 Paroxysmal atrial fibrillation; I10 Essential (primary) hypertension; E78.00 Pure hypercholesterolemia, unspecified; K21.9 Gastro-esophageal reflux disease without esophagitis; Z86.73 Personal history of transient ischemic attack (TIA), and cerebral infarction without residual deficits; M19.90 Unspecified osteoarthritis, unspecified site; N40.0 Benign prostatic hyperplasia without lower urinary tract symptoms; E66.9 Obesity, unspecified; Z68.38 Body mass index [BMI] 38.0-38.9, adult; Z87.891 Personal history of nicotine dependence; Z79.01 Long term (current) use of anticoagulants
CPT/HCPCS: 93312; 93320; 93325